=== PATIENT | male | born 1965 | race Caucasian/White ===

== ENCOUNTER 2023-02-03 14:38 | Inpatient (IN) | payer SELFPAY ==
[2023-02-03 15:12] VITALS: BMI 33.5
[2023-02-03] MEDS ORDERED: LISINOPRIL 10 MG TABLET PO ONE (18:05)
[2023-02-03] MEDS ORDERED: LOPERAMIDE HCL 2 MG CAPSULE PO PRN (18:07)
[2023-02-03] MEDS ORDERED: BENZOCAINE/MENTHOL (CHLORASEPTIC ) LOZENGE MM PRN (18:07)
[2023-02-03] MEDS ORDERED: hydrOXYzine PAMOATE 25 MG CAPSULE (FP) PO PRN (18:07)
[2023-02-03] MEDS ORDERED: P-EPHED 60MG/TRIPROLIDI 2.5MG TABLET PO PRN (18:07)
[2023-02-03] MEDS ORDERED: BENZONATATE 200 MG CAPSULE PO PRN (18:07)
[2023-02-03] MEDS ORDERED: IBUPROFEN 400 MG TABLET (FP) PO PRN (18:07)
[2023-02-03] MEDS ORDERED: ACETAMINOPHEN 325 MG TABLET (FP) PO PRN (18:07)
[2023-02-03] MEDS ORDERED: BISMUTH SUBSALICYLATE 524 MG/30 ML PO PRN (18:07)
[2023-02-03] MEDS ORDERED: POLYETHYLENE GLYCOL (HEALTHYLAX) 3350 17 GM PACKET PO PRN (18:07)
[2023-02-03] MEDS ORDERED: ONDANSETRON *ODT* 4 MG TABLET SL PRN (18:07)
[2023-02-03] MEDS ORDERED: IBUPROFEN 600 MG TABLET (FP) PO PRN (18:07)
[2023-02-03] MEDS ORDERED: MAG HYDROX/AL HYDROX/SIMETH 30 ML UNIT-DOSE CUP PO PRN (18:07)
[2023-02-03] MEDS ORDERED: MAGNESIUM HYDROX 2400MG/30ML ORAL SUSPENSION 30 ML CUP PO PRN (18:07)
[2023-02-03] MEDS ORDERED: guaiFENesin 600 MG TABLET.ER (FP) PO PRN (18:07)
[2023-02-03] MEDS ORDERED: DICYCLOMINE HCL 10 MG CAPSULE PO PRN (18:07)
[2023-02-03] MEDS ORDERED: LISINOPRIL 10 MG TABLET ONE (18:19)
[2023-02-03] MEDS: MELATONIN 5 MG TABLETS PO SCH (22:19)
[2023-02-03] MEDS: METHOCARBAMOL 500 MG TABLET PO PRN (22:19)
[2023-02-03] MEDS: THIAMINE HCL 100 MG TABLET (FP) PO SCH (22:19)
[2023-02-04] MEDS: LISINOPRIL 10 MG TABLET PO SCH (10:31)
[2023-02-04] MEDS: PRENATAL VITAMINS W/ FOLIC ACID TABLET (FP) PO SCH (10:31)
[2023-02-04 11:27] LABS: CHLORIDE 101 mmol/L (98-107); POTASSIUM 3.8 mmol/L (3.5-5.1); SODIUM 139 mmol/L (136-145)
[2023-02-04 11:33] LABS: HEMATOCRIT 47.4 % (35.4-49); HEMOGLOBIN 15.5 GM/dL (11.7-16.9); MCH 27.7 pg (25.7-33.7); MCHC 32.7 g/dl (32.0-35.9); MEAN CELL VOLUME 84.9 fl (80-96); MEAN PLT VOLUME 10.1 fl (7.5-11.1); PLATELET COUNT 185 10^3/uL (134-434); RBC 5.58 M/mm3 (4.00-5.60); RDW 13.6 % (11.9-15.9); WHITE BLOOD COUNT 9.2 K/mm3 (4.0-10.0)
[2023-02-04 11:42] LABS: SGOT/AST 15 U/L (15-37)
[2023-02-04 11:52] LABS: ANION GAP 11 mmol/L (4-13); CALCIUM 9.1 mg/dL (8.5-10.1); CO2 27 mmol/L (21-32); GLUCOSE,RANDOM 216 mg/dL (74-106)
[2023-02-04 11:53] LABS: BLOOD UREA NITROGEN 9.9 mg/dL (7-18)
[2023-02-04 11:55] LABS: ALBUMIN 3.2 g/dl (3.4-5.0); CREATININE 1.1 mg/dL (0.55-1.3)
[2023-02-04 11:56] LABS: SGPT/ALT 42 U/L (13-61)
[2023-02-04 11:57] LABS: BILIRUBIN,TOTAL 0.6 mg/dL (0.2-1); TOT PROT 6.9 g/dl (6.4-8.2)
[2023-02-04 11:58] LABS: ALK PHOS 121 U/L (45-117)
[2023-02-04] MEDS: BACITRACIN 0.9 GM PACKET TP SCH (15:27)
[2023-02-04] MEDS: metFORMIN HCL 500 MG TABLET (FP) PO SCH (17:00)
[2023-02-04] MEDS: MELATONIN 5 MG TABLETS PO SCH (22:16)
[2023-02-04] MEDS: METHOCARBAMOL 500 MG TABLET PO PRN (22:16)
[2023-02-04] MEDS: THIAMINE HCL 100 MG TABLET (FP) PO SCH (22:17)
[2023-02-05] MEDS: metFORMIN HCL 500 MG TABLET (FP) PO SCH (06:01)
[2023-02-05 09:51] VITALS: TEMP 97.8
[2023-02-05] MEDS: BACITRACIN 0.9 GM PACKET TP SCH (10:05)
[2023-02-05] MEDS: LISINOPRIL 10 MG TABLET PO SCH (10:05)
[2023-02-05] MEDS: PRENATAL VITAMINS W/ FOLIC ACID TABLET (FP) PO SCH (10:05)
[2023-02-05 13:55] VITALS: BP 146/84; PULSE 67; RESP 20
== END 2023-02-05 13:47 | disposition home or self-care (01) | DRG 775 ==
LOC: YASAS 14:38 → Y3N 18:11
PROVIDERS: ADMIT Allergy & Immunology; ATTEND Surgery
PROC: HZ2ZZZZ Detoxification Services for Substance Abuse Treatment (ICD-10-PCS; principal; 2023-02-03)
DX: F10.20 Alcohol dependence, uncomplicated (principal); I10 Essential (primary) hypertension; E11.59 Type 2 diabetes mellitus with other circulatory complications; Z79.84 Long term (current) use of oral hypoglycemic drugs
CPT/HCPCS: 36415; 80053; 80307; 82962; 85027; 86780; 87635